=== PATIENT | female | born 1985 | race Caucasian/White ===

== ENCOUNTER → 2018-03-24 10:49 | Outpatient (CLI) | payer MEDICAID, SELFPAY ==
[2018-03-24 15:28] LABS: Hematocrit 30.7 % (37-47); Hemoglobin 8.5 g/dl (12.0-15.0); Mean Corp Hgb Conc 27.7 g/gl (32-36); Mean Corpuscular Hgb 18.9 pg (27.0-32.0); Mean Corpuscular Volume 68.2 fL (81-99); Mean Platelet Vol. 12.1 fl (6.2-12.0); Platelet Count 501 K/mm3 (150-450); RBC Distribution Width CV 17.5 % (11.6-14.6); RBC Distribution Width SD 42.3 fl (35.1-43.9); Scan Indicated on CBC? Y/N YES- FLAGS NOTED; White Blood Count 7.8 K/mm3 (4.4-11.0)
[2018-03-24 15:58] LABS: Ferritin 4 ng/mL (8-252); Iron 15 ug/dL (50-170)
[2018-03-24 16:01] LABS: Differential Comment SEE COMMENTS
[2018-03-25 10:20] LABS: Vitamin B12 334 pg/mL (211-911)
[2018-03-30 13:44] LABS: HPV Reflexed? NOT INDICATED
== END ==
PROVIDERS: Visit Provider Obstetrics & Gynecology
DX: Z12.4 Encounter for screening for malignant neoplasm of cervix (principal)
CPT/HCPCS: 36415; 82607; 82728; 82746; 83540; 85027; 88175; G0145

== ENCOUNTER 2018-04-13 07:38 | Observation (INO) | payer MEDICAID, SELFPAY ==
[2018-04-12 12:09] LABS: Hematocrit 35.5 % (37-47); Hemoglobin 10.2 g/dl (12.0-15.0); Mean Corp Hgb Conc 28.7 g/gl (32-36); Mean Corpuscular Hgb 22.4 pg (27.0-32.0); Mean Corpuscular Volume 77.9 fL (81-99); Mean Platelet Vol. 10.5 fl (6.2-12.0); Platelet Count 290 K/mm3 (150-450); Prothrombin Time (Protime)PT. 13.4 SECONDS (11.7-14.9); Red Blood Count 4.56 M/mm3 (4.2-5.4); White Blood Count 6.3 K/mm3 (4.4-11.0)
[2018-04-12 12:10] LABS: Partial Thromboplast Time 29.8 Seconds (24.1-36.2)
[2018-04-12 12:11] LABS: Scan Indicated on CBC? Y/N YES- FLAGS NOTED
[2018-04-12 12:28] LABS: Pregnancy, Serum, hCG Quali. NEGATIVE Negative (0-9 Nonpreg)
[2018-04-12 12:31] LABS: Differential Comment SCANNED
[2018-04-13] VITALS (13 sets, daily range): BP systolic 91–114; BP diastolic 44–60; PULSE 51–76; RESP 16–18; TEMP 36.2–37.2; O2SAT 97–100; BMI 32.8
[2018-04-13 06:22] LABS: Internal QC Validated? YES +Cl - CLEAR BKGD; Pregnancy, Urine Negative Negative
[2018-04-13] MEDS: Bupivacaine Mpf 0.5% 30 ML VIAL (07:06)
--- NOTE | 2018-04-13 07:30 | HYST_PTH ---
PATIENT: MERON GERMAN LOC: MS2 U#:[id number] AGE/SX: 32/F ROOM: MS219 RE04/13/[address]: Dr. Usama Rodriguez MD : [id number] BED: 1 DIS: 04/14/2018 SPEC #: [id number] RECD: 04/13/18 13:53 STATUS: DORIS RETitus #: [id number] CONOR: 04/13/18 07:[address]: Usama Rodriguez DEPT: SURGICAL PATHOLOGY RECD BY: Aime Wilkes ENTERED: 04/13/18 14:23 SP TYPE: HYSTERECT OTHR DR: Dr. Josias Wagner MD No Primary Care Phys Tissues: Uterus, NOS Procedures: Surgery Specimen Level V HEADER OPERATION: Hysterectomy, lap-assisted vaginal, salpingectomy PRE-OP DIAGNOSIS: Menorrhagia, fibroid uterus TISSUE SUBMITTED: Uterus, bilateral fallopian tubes MICROSCOPIC DIAGNOSIS Uterus, hysterectomy: Cervix ? nabothian cysts and mild chronic inflammation. Endometrium ? secretory endometrium. Myometrium ? leiomyomas and focal adenomyosis. Right fallopian tube ? no pathologic change. Left fallopian tube ? no pathologic change. AM:nia 04/14/18 MICROSCOPIC DESCRIPTION Slides are reviewed. GROSS DESCRIPTION Received in fixative is one container labeled with the patient's name and designated uterus. The specimen consists of a uterus with attached cervix and attached right and left fallopian tubes. The uterus with cervix measures 12 x 11 x 8.5 cm and weighs 316 gm. The ectocervix is unremarkable and the cervical os is round in contour. The endocervical canal measures 4 cm in length and is grossly unremarkable. The triangular endometrial cavity measures 5.5 x 4.5 cm. The endometrium is light lynn, velvety and glistening and measures up to 0.2 cm in thickness. The myometrium measures 2.5 cm in greatest thickness and is distorted by multiple spherical rubbery nodules consistent with leiomyomas ranging in size from 0.5 to 4.5 cm in greatest dimension. The nodules are submucosal, intramural and subserosal in location. Serial sections of the nodules reveal whorled appearances without areas of cyst formation, necrosis or hemorrhage. The right and left fallopian tubes are similar in appearance with average lengths of 6.5 cm and maximal diameters of 0.7 cm. Their fimbriated ends are normal in appearance. Coatings Inspector sections are submitted in 11 cassettes as follows: 1 - anterior cervix, 2 - posterior cervix, 3 & 4 - anterior uterine wall, 5 & 6 - posterior uterine wall, 7 ? largest endometrial mass, 8 ? second largest myometrial mass, 9 ? third largest myometrial mass, 10 - right fallopian tube, 11 ? left fallopian tube. / AM:nia 04/13/18 TC:1 CPT: 26776
--- NOTE | 2018-04-13 07:47 | PCM.DC.VHY ---
Discharge Diet: No Restrictions Discharge Activity: Return to Normal Activity, May not drive while taking narcotic pain medications., May Shower Return to work on:: 05/14/18 May shower in (days): 0 May resume sexual activity in: 6 weeks Call your doctor if your incision/area has: Sudden Increased Bleeding, Increased Pain/ Swelling, Foul Smelling Discharge, Swelling at the incision site Call your doctor if you observe: Fever of 101 or Higher, Inability to urinate, Inability to have a bowel movement, Using more than one pad per hour, Shortness of breath, Chest pain, Calf discomfort, Uncontrolled pain Remove Dressing in (days):: 2 Cleanse incision/area with: Soap & Water Allergies/Adverse Reactions: Allergies No Known Allergies Allergy (Verified 04/11/18 08:50) Medications to take at Discharge Cholecalciferol (Vitamin D3) [Vitamin D3] 2,000 unit PO DAILY 04/11/18 Ferrous Gluconate 324 mg PO BID 04/11/18 Ibuprofen 600 mg PO 4X/DAY 7 Days #30 tab 04/13/18 Oxycodone [Oxyir] 5 - 10 mg PO Q4H PRN PRN 7 Days #28 tab 04/13/18 The following prescriptions were given: Oxycodone [Oxyir] 5 - 10 mg PO Q4H PRN PRN 7 Days #28 tab PRN Reason: Mod-Severe Pain (4-10/10) Ibuprofen 600 mg PO 4X/DAY 7 Days #30 tab Primary Care Physician: Care Physician,No Primary [Primary Care Provider] - Test Results: Test results from this visit will be discussed in further detail at your follow-up appointment, if applicable. Please Follow Up With: Usama Rodriguez MD When: one week Proposed Discharge Date: 04/14/18
[2018-04-13] MEDS: Vasopressin 20 UNITS/ML Vial (08:30)
--- NOTE | 2018-04-13 09:15 | PCM.OPRPT ---
Problem List (1) Menorrhagia with regular cycle Status: Chronic (2) Fibroid uterus Status: Acute Qualifiers: Uterine leiomyoma location: intramural, submucous, and subserous Qualified Code(s): D25.1 - Intramural leiomyoma of uterus; D25.0 - Submucous leiomyoma of uterus; D25.2 - Subserosal leiomyoma of uterus (3) Anemia Status: Acute Qualifiers: Iron deficiency anemia type: chronic blood loss Report of Operation Date of Procedure: 04/13/18 Pre-Operative Diagnosis: Menorrhagia, fibroid uterus, anemia Post-Operative Diagnosis: Same Surgery/Procedure Performed:: Laparoscopic Assisted Vaginal Hysterectomy, Bilateral Salpingectomy Description of Surgical Findings:: Enlarged fibroid uterus. Normal ovaries and fallopian tubes. Normal lappearing liver. Normal appendix. No significant abdominal or pelvic scarring. maintenance journeyman: Jeronimo Mckenzie Type of Anesthesia:: General Anesthesiologist: Nilesh Kimball Special Medications: none Specimen's removed: Uterus, cervix, and fallopian tubes Drains: Kirkpatrick Estimated Blood Loss (mL): 150cc Fluids Replaced: 1500cc LR Description of Procedure: Jeannette was taken to the OR with IV running. She was given 2 grams of Cefotetan intravenously prior to the procedure for surgical prophylaxis. SCDs were in place and operational throughout the case and into the recovery room. General anesthesia was introduced without complication. A kirkpatrick catheter was placed. She was then prepped and draped in the dorsal lithotomy position. A Zumi style uterine manipulator was then placed. Attention was then directed to the abdomen. A 5mm vertical incision was made in the lower base of the umbilicus and the subcutaneous tissue was bluntly dissected down to the level of fascia with a Melvina clamp. The abdominal wall was then elevated and a Veress needle was placed into the abdominal cavity. The abdomen was then inflated to 15 Torr pressure with CO2 gas. The Veress needle was removed and replaced with a 5mm laparoscopic trocar and sleeve. The trocar was removed and replaced with the laparoscope. Findings were as mentioned above. Two lateral 5mm ports were placed one on the right and one on the left about 3 cm below the level of the umbilicus lateral to the inferior epigastric vessels. Attention was first directed to the left fallopian tube. The tube was grasped at the fimbriated end elevated and the mesosalpinx was dissected to the cornua of the uterus with the ligasure device. The left uteroovarian ligament was then cauterized and cut. The left round ligament was cauterized and cut . The Broad ligament was then dissected close to the uterus to the level of the cervix. The anterior and posterior leaves were then . A bladder flap was created. The left uterine artery was cauterized and cut. The paracervical tissue was dissected close to the cervix down tot he level of the uterosacral ligament. In a similar fashion the right fallopian tube and parauterine connections were dissected. Attention was then directed to the vagina. The uterine manipulator was removed and the cervix grasped with two single toothed tenacula. The cervicovaginal epithelium was injected superficially with a dilute pitressin solution. The Bovie cautery was then used to circumfrentially cut the cervicovaginal epithelium. This tissue was pushed superiorly. The vesicovaginal peritoneum was then identified and entered sharply with Metzembaum scissors. In a similar fashion the rectovaginal peritoneum and entered sharply. A long weighted speculum was placed through the posterior defect. The uterosacral ligaments on each side were grasped with Ilana clamps, cut, and suture ligated. These ties were held for incorporation in the angles of the vaginal cuff. The paracervical issue on each side was clamped cut and suture ligated. The specimen was then removed en bulk. The midline of the vaginal cuff was then closed from the anterior surface to the posterior surface incorporating the peritoneum. The vagina cuff angles were then closed with 0-Vicryl suture incorporating the previously held uterosacral ligament ties. The vaginal cuff was then closed with figure of eight sutures. Hemostasis was excellent in the vagina. All instruments were removed from the vagina. The abdomen was reinsulflated and a thorough survey was performed to ensure hemostasis. Will hemostasis assured Fabrizio was placed over the surgical pedicle sites. The trocar sleeves were then removed and gas evacuated from the abdomen. The skin incisions were closed with 4-0 Monocryl suture. The skin incision sites were then injected with 0.5% Marcaine. Sponge, needle, and instrument counts were correct. She was reversed from anesthesia without complication and taken to the recovery room in stable condition. Grafts/Implants Used: Fabrizio to vaginal cuff - Complications none - Admit VTE Documentation VTE Present on Admission: No VTE Mechan Device Prophylaxis: SCD's VTE Pharm Prophylaxis ordered?: No
[2018-04-13] MEDS: HYDROmorphone 1 MG/ML Syringe IV (12:12)
[2018-04-13] MEDS: Ketorolac 30 MG/ML Syringe IV ×2 (13:54→19:00)
[2018-04-13] MEDS: Ferrous Gluconate 325 MG Tablet PO ×2 (13:55→17:39)
[2018-04-13] MEDS: oxyCODONE 5 MG Tablet PO (17:38)
[2018-04-13] MEDS: 0.9% NaCl Peripheral Flush Adult/Peds IV (18:59)
[2018-04-14] MEDS: Ketorolac 30 MG/ML Syringe IV ×2 (01:55→07:54)
[2018-04-14] MEDS: 0.9% NaCl Peripheral Flush Adult/Peds IV ×2 (01:55→07:54)
[2018-04-14 02:00] VITALS: BP 105/59; PULSE 61; RESP 16; TEMP 36.7; O2SAT 97
--- NOTE | 2018-04-14 06:49 | PCM.PN.OB ---
Patient Problems: Active and Suspected Problems Fibroid uterus (Acute) Anemia (Acute) Subjective: Some abdominal soreness and cramping. Tolerating PO. Voiding. Objective: Afeb VSS - Physical Exam General: Alert, Oriented x3, Cooperative, No apparent distress Lungs: Clear to auscultation, Normal air movement Cardiovascular: Regular rate, Regular Rhythm Abdomen: Soft, Non Tender, Non-Distended, - - Incision dressing dry Extremities: No edema Skin: No rashes Neurological: Neuro grossly intact Psych/Mental Status: Normal Affect Comment: Scant vaginal spotting Vital Signs Temp Pulse Resp BP Pulse Ox 98.1 F 61 16 105/59 L 97 04/14/18 02:00 04/14/18 02:00 04/14/18 02:00 04/14/18 02:00 04/14/18 02:00 Oxygen Delivery Method Room Air Weight: 197 lb 5.019 oz Body Mass Index (BMI) 32.8 Intake and Output for Last 24 Hours 04/12/18 04/13/18 04/14/18 23:59 23:59 23:59 Intake Total 2500 / 2500 487 / 487 Output Total 170 / 170 300 / 300 Balance 2330 / 2330 187 / 187 Laboratory Tests Past 24 Hrs 04/14/18 06:25 WBC Pending RBC Pending Hgb Pending Hct Pending MCV Pending MCH Pending MCHC Pending RDW Pending RDW Differential Pending Plt Count Pending Medical Necessity - Tobacco Use Smoking Status: Former smoker Tobacco Use: Cigarettes Assessment/Plan All Active Problems Fibroid uterus (Acute) Anemia (Acute) Doing well on POD#1 s/p LAVH. Cleared for discharge home today. Home going instructions and warning given.
[2018-04-14 07:05] LABS: Hematocrit 29.9 % (37-47); Hemoglobin 8.7 g/dl (12.0-15.0); Mean Corp Hgb Conc 29.1 g/gl (32-36); Mean Corpuscular Hgb 23.1 pg (27.0-32.0); Mean Corpuscular Volume 79.5 fL (81-99); Mean Platelet Vol. 11.9 fl (6.2-12.0); Platelet Count 285 K/mm3 (150-450); Red Blood Count 3.76 M/mm3 (4.2-5.4); White Blood Count 10.2 K/mm3 (4.4-11.0)
[2018-04-14 07:06] LABS: Scan Indicated on CBC? Y/N YES- FLAGS NOTED
[2018-04-14 07:20] LABS: Differential Comment SCANNED
[2018-04-14 08:05] VITALS: BP 103/45; PULSE 60; RESP 16; TEMP 37.6; O2SAT 99
[2018-04-14] MEDS: Ferrous Gluconate 325 MG Tablet PO (08:05)
[2018-04-14] MEDS: oxyCODONE 5 MG Tablet PO (11:37)
== END 2018-04-14 11:45 | disposition home or self-care (01) ==
LOC: MS2 04-14 07:04
PROVIDERS: Admitting Provider Obstetrics & Gynecology; Visit Provider Obstetrics & Gynecology
PROC: 0UT9FZZ Resection of Uterus, Via Natural or Artificial Opening With Percutaneous Endoscopic Assistance (ICD-10-PCS; CPT 58554; principal; 2018-04-13 07:05)
DX: D25.1 Intramural leiomyoma of uterus (principal); N88.8 Other specified noninflammatory disorders of cervix uteri; N80.0 Endometriosis of uterus; Z87.891 Personal history of nicotine dependence; D25.0 Submucous leiomyoma of uterus; D25.2 Subserosal leiomyoma of uterus; D50.0 Iron deficiency anemia secondary to blood loss (chronic); Z79.899 Other long term (current) drug therapy
CPT/HCPCS: 58554; 36415; 81025; 84703; 85027; 85610; 85730; 86850; 86900; 88307; 96365; 96375; 96376; 99218; J7120; A4216; G0378; G0379; J2405

== ENCOUNTER 2019-08-26 09:57 | Emergency (ER) | payer MEDICAID, SELFPAY ==
[2019-08-26 09:58] VITALS: BP 121/73; PULSE 78; RESP 18; TEMP 36.8; O2SAT 99; BMI 30.7
--- NOTE | 2019-08-26 10:26 | RAD_ITS ---
STUDY: X-RAY CHEST REASON FOR EXAM: Female, 34 years old. Productive cough and congestion for 3 days. TECHNIQUE: PA and lateral views of the chest. COMPARISON: Prior comparison studies are not available for review at this time. FINDINGS: The lungs are clear and expanded. There is no demonstrated pleural abnormality. Normal size heart. Normal mediastinum and aamir. Normal visualized pulmonary arteries. Normal visualized aortic arch and descending thoracic aorta. There is mild dextroscoliosis of the thoracic spine. Normal visualized ribs, clavicles, and shoulders. There is no demonstrated abnormality of the visualized soft tissue structures of the upper abdomen. RAD/Chest PA and Lateral IMPRESSION: No active pulmonary disease. Electronically Signed: Mu Dolan MD at 11:17 EST Tel , Service support ,
--- NOTE | 2019-08-26 10:26 | ED.VIS.GEN ---
History of Present Illness Chief Complaint: Cough Detail of Chief Complaint: Cough and congestion Informant: Patient Onset: Days Context: Gradual Onset Timing: Waxes and wanes Current Severity: Mild Maximum Severity: Mild Narrative: Patient presents with congestion and sore throat for the past week or so. Of the past several days she has developed significant cough. She is bringing up sputum that is not green in color. She reports subjective fever at home. Past Medical History - Allergies and Home Meds Allergies/Adverse Reactions: Allergies No Known Allergies Allergy (Verified 08/26/19 09:57) Primary Care Physician: Care Physician,No Primary [Primary Care Provider] - Prior records reviewed: Yes Smoking Status: Former smoker Review of Systems General: Reports: Fever, Subjective Eyes: Denies: Visual changes - bilaterally ENT: Reports: Sore throat. Denies: Bilateral ear pain Cardiovascular: Denies: Chest pain Respiratory: Reports: Cough, Sputum Gastrointestinal: Denies: Abdominal pain, Nausea, Vomiting, Diarrhea Genitourinary: Denies: Dysuria Musculoskeletal: Denies: Swelling, Extremity Pain Neurological: Denies: Headache Endocrine: Denies: Polyuria Allergy: Denies: Uticaria Physical Exam Vital Signs/Narrative: Vital Signs Temp Pulse Resp BP Pulse Ox 08/26/19 09:58 98.2 F 78 18 121/73 H 99 Inital Vital Signs reviewed: Yes General: Well nourished, Well developed Head: Normocephalic ENT: Moist mucous membranes, TM's clear, - - Mild posterior pharyngeal drainage. Tonsils 1+ and symmetric. Uvula midline. Neck: Supple Cardiovascular: Regular rate, Regular rhythm Respiratory: No distress, CTA bilaterally Abdomen: Soft, Nontender Extremities: Nontender Skin: Normal color, No rash Neurological: Alert, Oriented x3 Psychological: Normal affect Diagnostic/Tx/Re-eval Impressions Chest X-Ray 08/26/19 10:26 IMPRESSION: No active pulmonary disease. Electronically Signed: Mu Dolan MD at 11:17 EST Tel , Service support , 08/26/19 10:26 Chest PA and Lateral [RAD] Stat 08/26/19 10:25 Mucosa - Throat Group A Streptococcus Rapid Screen - Preliminary - NEGATIVE - Medical Decision Making Strep and chest x-ray results are discussed with the patient. I believe her symptoms are all viral in nature and simply need to run their course. She is instructed on [id number] use to help control her symptoms. ED Disposition - Plan for ED Patient: Disposition: Home or Assisted Living Diagnosis: Viral URI Instructions: URI, Viral, No Abx (Adult) Referrals: Jamarcus Winslow MD [NON-STAFF] - As Needed
[2019-08-26 10:30] VITALS: O2SAT 97
== END 2019-08-26 12:01 | disposition home or self-care (01) ==
PROVIDERS: Emergency Provider Emergency Medicine
DX: J06.9 Acute upper respiratory infection, unspecified (principal); Z87.891 Personal history of nicotine dependence
CPT/HCPCS: 71046; 87880; 99282